=== PATIENT | female | born 1940 | race Two or more races ===

== ENCOUNTER 2023-06-01 17:37 | Inpatient (IN) | payer MEDICARE, OTHER ==
[~2023-06-01] VITALS: Ht 154.9 cm; Wt 45.5 kg
[2023-06-01 18:44] LABS: Basophils # (auto) 0.1 10 ^3/uL (0-0.2); Basophils % (auto) 1.3 % (0.0-2.0); Eosinophils # (auto) 0.1 10 ^3/uL (0-0.8); Eosinophils % (auto) 1.9 % (0.0-7.0); Hematocrit 35.9 % (36.0-46.0); Lymphocytes # (auto) 1.1 10 ^3/uL (0.4-5.4); Lymphocytes % (auto) 19.8 % (10.0-50.0); Mean Corpuscular Hemoglobin 30.2 pg (28.0-32.0); Mean Corpuscular Hgb Conc. 33.4 g/dL (32.0-36.0); Mean Corpuscular Volume 90.5 fL (80.0-100.0); Monocytes # (auto) 0.7 10 ^3/uL (0-1.3); Neutrophils # (auto) 3.6 10 ^3/uL (1.6-8.6); Red Blood Cells 3.97 10^6/uL (4.0-5.20); Red Cell Distribution Width 14.1 % (11.8-14.3); White Blood Cell 5.6 10^3/uL (4.4-10.8)
[2023-06-01 19:02] LABS: Alanine Aminotransferase 14 U/L (7-40); Albumin 4.2 g/dL (3.2-4.8); Alkaline Phosphatase 74 U/L (46-116); Anion Gap 4 (5-15); Aspartate Aminotransferase 20 U/L (13-40); BUN/Creatinine Ratio 22.2 (10.0-20.0); Bilirubin, Total 0.4 mg/dL (0.2-1.0); Blood Urea Nitrogen 20 mg/dL (9-23); Calcium 10.1 mg/dL (8.7-10.4); Carbon Dioxide 28 mmol/L (20-30); Chloride 100 mmol/L (98-107); Glucose 110 mg/dL (74-106); Magnesium 2.1 mg/dL (1.6-2.6); Potassium 4.6 mmol/L (3.5-5.1); Sodium 132 mmol/L (136-145); Total Protein 6.2 g/dL (5.7-8.2)
[2023-06-01 23:06] LABS: Urine Epithelial Cast None Seen /hpf (<5)
[2023-06-01 23:18] LABS: Urine Bacteria NONE SEEN /hpf (None Seen); Urine Blood Negative /uL (Negative); Urine Clarity Clear (Clear); Urine Color Colorless (Yellow); Urine Protein, UAD Negative (Negative); Urine Specific Gravity 1.013 (1.001-1.035); Urine Urobilinogen Normal (Negative); Urine WBC 1 /hpf (0 - 5); Urine pH 6.5 (5.0-8.0)
[2023-06-01] MEDS ORDERED: LORazepam 0.5 MG TAB PO PRN (23:45)
[2023-06-01] MEDS ORDERED: ONDANSETRON HCL 4 MG/2 ML VIAL IV PRN (23:45)
[2023-06-01] MEDS ORDERED: MORPHINE SULFATE INJ 2 MG/ml SYRG IV PRN (23:45)
[2023-06-01] MEDS ORDERED: NITROGLYCERIN 0.4 MG SL TAB SL PRN ×2 (23:45)
[2023-06-01] MEDS ORDERED: MORPHINE SULFATE 4 MG/ML SYR/VIAL IV PRN (23:45)
[2023-06-01 23:54] VITALS: PULSE 70; RESP 14; O2SAT 97
[2023-06-02] MEDS: ASPirin 81 mg TAB PO ONE (00:23)
[2023-06-02] MEDS: ALPRAZolam 0.25 MG TAB PO ONE (00:23)
[2023-06-02] MEDS: ENOXAPARIN SOD 60 MG/0.6 ML SYRINGE SC ONE (00:23)
[2023-06-02] MEDS: MAALOX PLUS or MAALOX 30 ML PO ONE (00:25)
[2023-06-02 05:26] LABS: Basophils # (auto) 0.1 10 ^3/uL (0-0.2); Basophils % (auto) 1.2 % (0.0-2.0); Eosinophils # (auto) 0.2 10 ^3/uL (0-0.8); Eosinophils % (auto) 2.6 % (0.0-7.0); Hematocrit 32.7 % (36.0-46.0); Hemoglobin 11.1 g/dL (12.2-16.2); Lymphocytes # (auto) 1.6 10 ^3/uL (0.4-5.4); Lymphocytes % (auto) 26.2 % (10.0-50.0); Mean Corpuscular Hemoglobin 30.4 pg (28.0-32.0); Mean Corpuscular Hgb Conc. 33.9 g/dL (32.0-36.0); Mean Corpuscular Volume 89.7 fL (80.0-100.0); Monocytes # (auto) 0.9 10 ^3/uL (0-1.3); Monocytes % (auto) 14.7 % (0.0-12.0); Neutrophils # (auto) 3.5 10 ^3/uL (1.6-8.6); Neutrophils % (auto) 55.3 % (37.0-80.0); Red Blood Cells 3.65 10^6/uL (4.0-5.20); Red Cell Distribution Width 14.1 % (11.8-14.3); White Blood Cell 6.3 10^3/uL (4.4-10.8)
[2023-06-02] MEDS: SODIUM CHLOR 0.9% PF (SALINE LOCK) 10ML VIAL/SYR IV SCH (05:51)
[2023-06-02 06:24] LABS: Chloride 102 mmol/L (98-107); Potassium 3.9 mmol/L (3.5-5.1); Sodium 134 mmol/L (136-145)
[2023-06-02 06:25] LABS: Anion Gap 7 (5-15); Calcium 9.8 mg/dL (8.5-10.1); Carbon Dioxide 25 mmol/L (20-30)
[2023-06-02 06:30] LABS: BUN/Creatinine Ratio 16.9 (10.0-20.0); Blood Urea Nitrogen 13 mg/dL (9-23); Glucose 93 mg/dL (74-106); Triglycerides 48 mg/dL (< 150)
[2023-06-02 06:31] LABS: LDL Cholesterol 76 mg/dL (< 100)
[2023-06-02 06:32] LABS: Cholesterol 171 mg/dL (< 200); HDL Cholesterol 82 mg/dL (40-59)
[2023-06-02 07:13] LABS: Magnesium 2.1 mg/dL (1.6-2.6)
[2023-06-02] MEDS: POTASSIUM CHLORIDE 8 MEQ TAB PO ONE (08:43)
[2023-06-02 09:03] VITALS: PULSE 71; RESP 16; O2SAT 97
[2023-06-02 09:03] LABS: INR 1.04 (0.9-1.15); Partial Thromboplastin Time 30.8 SEC (24.5-34.5); Prothrombin Time 10.9 sec (9.3-11.8)
[2023-06-02] MEDS: LOSARTAN POTASSIUM 50 MG TAB PO ONE (09:23)
[2023-06-02] MEDS ORDERED: LISINOPRIL 10 MG TAB PO SCH (10:00)
[2023-06-02] MEDS ORDERED: CARVEDILOL 3.125 MG TAB PO SCH (10:00)
[2023-06-02] MEDS ORDERED: ENOXAPARIN SOD 100 MG/1 ML SYRINGE SC SCH (10:00)
[2023-06-02] MEDS: ASPirin 81 mg TAB PO SCH (10:05)
[2023-06-02] MEDS: CLOPIDOGREL BISULFATE 75 MG TAB PO SCH (10:05)
[2023-06-02] MEDS: ADENOSINE 42 MG in GIVE UN-DILUTED 0 ML IV ONE (11:20)
[2023-06-02 13:48] VITALS: BP 149/48; PULSE 68; RESP 14; TEMP 97.8
[2023-06-02] MEDS ORDERED: ALPR0.255 PO (14:39)
[2023-06-02] MEDS ORDERED: LOSA100T33 PO (14:40)
[2023-06-02 17:00] VITALS: BP 141/91; PULSE 71; RESP 16; TEMP 97.4; O2SAT 97
[2023-06-02 20:00] VITALS: BP 158/57; PULSE 62; PULSE 81; RESP 18; TEMP 97.6; O2SAT 96
[2023-06-02] MEDS: ATORVASTATIN 20 MG TAB PO SCH (21:12)
[2023-06-02 22:00] VITALS: BP 158/57; PULSE 62; RESP 18; TEMP 97.6; O2SAT 96
[2023-06-02] MEDS: hydrALAZINE HCL 20 MG/ML VL IV PRN (22:16)
[2023-06-03 05:00] VITALS: BP 127/52; PULSE 72; RESP 18; TEMP 97.3; O2SAT 98
[2023-06-03 06:26] LABS: Basophils # (auto) 0.1 10 ^3/uL (0-0.2); Basophils % (auto) 1.4 % (0.0-2.0); Eosinophils # (auto) 0.1 10 ^3/uL (0-0.8); Eosinophils % (auto) 2.7 % (0.0-7.0); Hematocrit 33.8 % (36.0-46.0); Hemoglobin 11.1 g/dL (12.2-16.2); Lymphocytes # (auto) 0.9 10 ^3/uL (0.4-5.4); Lymphocytes % (auto) 15.5 % (10.0-50.0); Mean Corpuscular Hemoglobin 30.1 pg (28.0-32.0); Mean Corpuscular Hgb Conc. 32.9 g/dL (32.0-36.0); Mean Corpuscular Volume 91.4 fL (80.0-100.0); Monocytes # (auto) 0.7 10 ^3/uL (0-1.3); Monocytes % (auto) 13.2 % (0.0-12.0); Neutrophils # (auto) 3.7 10 ^3/uL (1.6-8.6); Neutrophils % (auto) 67.2 % (37.0-80.0); Red Cell Distribution Width 14.2 % (11.8-14.3); White Blood Cell 5.5 10^3/uL (4.4-10.8)
[2023-06-03 06:42] LABS: Alanine Aminotransferase 12 U/L (7-40); Alkaline Phosphatase 62 U/L (46-116); Anion Gap 6 (5-15); BUN/Creatinine Ratio 16.9 (10.0-20.0); Blood Urea Nitrogen 12 mg/dL (9-23); Calcium 9.1 mg/dL (8.7-10.4); Carbon Dioxide 24 mmol/L (20-30); Chloride 102 mmol/L (98-107); Glucose 93 mg/dL (74-106); Sodium 132 mmol/L (136-145)
[2023-06-03 06:43] LABS: Albumin 3.6 g/dL (3.2-4.8); Aspartate Aminotransferase 17 U/L (13-40); Bilirubin, Total 0.7 mg/dL (0.2-1.0); Total Protein 5.6 g/dL (5.7-8.2)
[2023-06-03 08:00] VITALS: PULSE 60
[2023-06-03 09:00] VITALS: BP 141/55; PULSE 77; RESP 16; TEMP 97.5; O2SAT 97
[2023-06-03] MEDS: LOSARTAN POTASSIUM 50 MG TAB PO SCH (09:29)
[2023-06-03] MEDS: ENOXAPARIN SOD 40 MG/0.4 ML SYRINGE SC SCH (09:31)
[2023-06-03] MEDS: ACETAMINOPHEN 325 MG TAB PO PRN (16:35)
== END 2023-06-03 17:13 | disposition home or self-care (01) | DRG 281 ==
LOC: EDBD 17:37 → ER 17:37 → TELE-CENTR 23:43 → TELE 23:43 → TELE-CENTR 06-02 13:49
PROVIDERS: ADMIT Hospitalist; ATTEND Family Medicine
DX: I16.0 Hypertensive urgency (principal); I21.A1 Myocardial infarction type 2; E87.1 Hypo-osmolality and hyponatremia; R07.89 Other chest pain; F41.9 Anxiety disorder, unspecified; D64.9 Anemia, unspecified; E78.5 Hyperlipidemia, unspecified; Z90.710 Acquired absence of both cervix and uterus; Z88.2 Allergy status to sulfonamides
CPT/HCPCS: 36415; 71045; 78452; 80048; 80053; 80061; 81001; 83735; 83880; 84443; 84484; 85025; 85610; 85730; 93005; 93017; 93306; G0378; J0153

== ENCOUNTER 2024-11-07 09:12 | Inpatient (IN) | payer MEDICARE, BC ==
[~2024-11-07] VITALS: Ht 154.9 cm; Wt 48.6 kg
[~2024-11-07 09:12] MED LIST: ALPR0.255 PO; LOSA100T33 PO
--- NOTE | 2024-11-07 10:01 | ED.PDOC ---
HPI (NEURO) HPI Comments This is a 83 year old female presenting to the ED with chief complaint of right sided weakness. Patient reports that she had woken up this morning with right arm weakness with associated slower than normal speech. Patient relays that her symptoms have since resolved upon arrival to the ED. Patient denies any N/V/D, headache, dysuria, numbness, tingling, chest pain, or SOB. Patient states she took her BP medication last night. Time Seen by MD: 09:42 Primary Care Provider: HEBER Cavazos Notes: Nurses Notes, Medications, Allergies Information Source: Patient Mode of Arrival: Ambulatory Severity: Moderate Headache Severity: None Timing: Hours Duration: Since onset Prehospital treatment: None Weakness Location: (R) Arm Onset: At rest Circumstances: Spontaneous Symptoms: Weakness, Difficulty talking Before: Normal During: Awake History of: None Modifying factors: Nothing Past Medical History PAST MEDICAL HISTORY: Anxiety, HTN Surgical History: , Hysterectomy SPORTS COORDINATOR History: No Pertinent SPORTS COORDINATOR History Family History Family History: Unknown Social History Smoker: Non-Smoker Alcohol: Occasionally Drugs: Denies Drug Use Lives In: Home Constitutional: denies: chills, diaphoresis, fatigue, fever, malaise, sweats, weakness, others EENTM: denies: blurred vision, double vision, ear bleeding, ear discharge, ear drainage, ear pain, ear ringing, eye pain, eye redness, hearing loss, mouth pain, mouth swelling, nasal discharge, nose bleeding, nose congestion, nose pain, photophobia, tearing, throat pain, throat swelling, voice changes, others Respiratory: denies: cough, hemoptysis, orthopnea, SOB at rest, shortness of breath, SOB with excertion, stridor, wheezing, others Cardiovascular: denies: chest pain, dizzy spells, diaphoresis, Dyspnea on exertion, edema, irregular heart beat, left arm pain, lightheadedness, palpitations, PND, syncope, others Gastrointestinal: denies: abdomen distended, abdominal pain, blood streaked bowels, constipated, diarrhea, dysphagia, difficulty swallowing, hematemesis, melena, nausea, poor appetite, poor fluid intake, rectal bleeding, rectal pain, vomiting, others Genitourinary: denies: abnormal vagina bleeding, burning, dyspareunia, dysuria, flank pain, frequency, hematuria, incontinence, pain, , vagina discharge, urgency, others Neurological: reports: right sided weakness, speech problems; denies: dizziness, fainting, headache, left sided numbness, left sided weakness, numbness, paresthesia, pre-existing deficit, right sided numbness, seizure, tingling, tremors, weakness, others Musculoskeletal: denies: back pain, gout, joint pain, joint swelling, muscle pain, muscle stiffness, neck pain, others Integumetry: denies: bruises, change in color, change in hair/nails, dryness, laceration, lesions, lumps, rash, wounds, others Allergic/Immunocompromised: denies: Difficulty Healing, Frequent Infections, Hives, Itching, others Hematologic/Lymphatic: denies: anemia, blood clots, easy bleeding, easy bruising, swollen glands, others Endocrine: denies: excessive hunger, excessive sweating, excessive thirst, excessive urination, flushing, intolerance to cold, intolerance to heat, unexplained weight gain, unexplained weight loss, others Psychiatric: denies: anxiety, bipolar disorder, depression, hopeless, panic disorder, schizophrenia, sleepless, suicidal, others All Other Systems: Reviewed and Negative Physical Exam General Appearance: No Apparent Distress, Normal HEENT: Normal ENT Inspection, Pharynx Normal, TMs Normal Neck: Full Range of Motion, Non-Tender, Normal, Normal Inspection Respiratory: Chest Non-Tender, Lungs Clear, No Accessory Muscle Use, No Respiratory Distress, Normal Breath Sounds Cardiovascular: No Edema, No JVD, No Murmur, No Gallop, Normal Peripheral Pulses, Regular Rate/Rhythm Breast Exam: Deferred Gastrointestinal: No Organomegaly, Non Tender, No Pulsatile Mass, Normal Bowel Sounds, Soft Genitalia: Deferred Pelvic: Deferred Rectal: Deferred Extremities: No calf tenderness, Normal capillary refill, Normal inspection, Normal range of motion, Non-tender, No pedal edema Musculoskeletal : Location: Right Extremity Location: Arm Apperance: Normal, Tenderness Neurologic: Alert, 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 Was a procedure done?: No Differential Diagnosis (SZ) Seizure: N/A CVA: CVA, Electrolyte Imbalance General Weakness: N/A Headache: N/A X-Ray, Labs, Meds, VS Vital Signs Date Time Temp Pulse Resp B/P (MAP) Pulse Ox O2 Delivery O2 Flow Rate FiO2 11/07/24 09:40 98.1 80 18 187/111 (136) 97 98.1 11/07/24 09:32 75 Lab Test 11/07/24 11:00 11/07/24 10:03 11/07/24 09:34 11/07/24 09:30 Range/Units Troponin I High Sensitivity 10 6 </=34 ng/L White Blood Count 4.7 4.4-10.8 10^3/uL Red Blood Count 4.31 4.0-5.20 10^6/uL Hemoglobin 13.3 12.2-16.2 g/dL Hematocrit 38.5 36.0-46.0 % Mean Corpuscular Volume 89.3 80.0-100.0 fL Mean Corpuscular Hemoglobin 30.8 28.0-32.0 pg Mean Corpuscular Hemoglobin Concent 34.5 32.0-36.0 g/dL Red Cell Distribution Width 14.2 11.8-14.3 % Platelet Count 269 140-450 10^3/uL Mean Platelet Volume 8.0 6.9-10.8 fL Neutrophils (%) (Auto) 67.0 37.0-80.0 % Lymphocytes (%) (Auto) 20.0 10.0-50.0 % Monocytes (%) (Auto) 8.8 0.0-12.0 % Eosinophils (%) (Auto) 2.8 0.0-7.0 % Basophils (%) (Auto) 1.4 0.0-2.0 % Neutrophils # (Auto) 3.1 1.6-8.6 10 ^3/uL Lymphocytes # (Auto) 0.9 0.4-5.4 10 ^3/uL Monocytes # (Auto) 0.4 0-1.3 10 ^3/uL Eosinophils # (Auto) 0.1 0-0.8 10 ^3/uL Basophils # (Auto) 0.1 0-0.2 10 ^3/uL Nucleated Red Blood Cells 0.0 % Sodium Level 134 L 136-145 mmol/L Potassium Level 3.7 3.5-5.1 mmol/L Chloride Level 100 98-107 mmol/L Carbon Dioxide Level 25 20-31 mmol/L Anion Gap 9 5-15 Blood Urea Nitrogen 16 9-23 mg/dL Creatinine 0.88 0.550-1.02 mg/dL Glomerular Filtration Rate Calc 65 >90 mL/min BUN/Creatinine Ratio 18.2 10.0-20.0 Serum Glucose 96 74-106 mg/dL Calcium Level 11.0 H 8.7-10.4 mg/dL POC Glucose 96 70-106 mg/dl Urine Color Light-yellow Yellow Urine Clarity Clear Clear Urine pH 6.5 5.0-9.0 Urine Specific [place] 1.009 1.001-1.035 Urine Protein Negative Negative Urine Ketones Negative Negative Urine Blood Negative Negative /uL Urine Nitrite Negative Negative Urine Bilirubin Negative Negative Urine Urobilinogen Normal Negative mg/dL Urine Leukocyte Esterase Negative Negative /uL Urine RBC <1 0 - 4 /hpf Urine Microscopic WBC < 1 0-5 /HPF Urine Squamous Epithelial Cells Few <5 /hpf Urine Bacteria None seen None Seen /hpf Urine Mucus Few None Seen Urine Glucose Normal Normal mg/dL CT Head: FINDINGS: There is mild global brain atrophy. There is mild decreased attenuation in the periventricular white matter. No intracranial hemorrhage, mass, midline shift, hydrocephalus, or evidence of acute large vessel infarct. There are atherosclerotic calcifications of the cavernous ICAs. There are Postoperative changes of Bilateral cataract extraction surgery. The partially-visualized paranasal sinuses are clear. The bilateral mastoid air cells and middle ear spaces are clear. No cranial fracture or scalp edema. IMPRESSION: Mild global brain atrophy and chronic ischemic changes without evidence of acute intracranial process. Chest XR: FINDINGS: . The heart and mediastinal contours are grossly unremarkable. There is no evidence of pleural disease. The lungs are clear. The bony structures of the chest are intact without fracture. IMPRESSION: 1. No evidence of acute disease. Images Reviewed?: Images reviewed and evaluated by me Time of 1ST Reevaluation: 10:31 Reevaluation 1ST: Unchanged Patient Education/Counseling: Diagnosis, Treatment Family Education/Counseling: No Family Present Additional Information Previous visits reviewed: 06/01/23 for chest pain The following tests were ordered, and results were reviewed by me: CT Head, CBC, BMP, Troponin Additional Information was gathered from interviewing the following independent historians: None I reviewed and agreed with the following test results read by other providers: CT Head I discussed treatment and results with medical personnel and: patient Comprehensive systems review obtained and negative except for what is stated in the HPI. Departure 1 Departure Time of Disposition: 11:58 (Patient with transient episodes of right-sided weakness. This is concerning for a TIA. We will admit patient for further workup and expert consultation.) Impression: Primary Impression: Right sided weakness Disposition: ADMITTED INPATIENT Admit to: Med Surg Condition: Serious Critical Care Note Critical Care Time?: Yes Critical care comment: Concern for CVA Authorized and Performed by: Jayne Smith MD Total critical care time: Approximately 39 minutes Due to a high probability of clinically significant, life threatening deterioration, the patient required my highest level of preparedness to intervene emergently and I personally spent this critical care time directly and personally managing the patient. This critical care time included obtaining a history; examining the patient; pulse oximetry; ordering and review of studies; arranging urgent treatment with development of a management plan; evaluation of patient's response to treatment; frequent reassessment; and, discussions with other providers. This critical care time was performed to assess and manage the high probability of imminent, life-threatening deterioration that could result in multi-organ failure. It was exclusive of separately billable procedures and treating other patients and teaching time. Please see my other sections and the rest of the note for further information on patient assessment and treatment. Stability Stability form required: No Heart Score Heart Score: Heart Score Response (Comments) Value History N/A 0 EKG N/A 0 Age N/A 0 Risk Factors N/A 0 Troponin N/A 0 Total 0 I personally scribed for JAYNE SMITH MD ([email or web address]) on 11/07/24 at 10:01. Electronically submitted by Amilcar Montalvo ([email or web address]). I personally scribed for JAYNE SMITH MD ([email or web address]) on 11/07/24 at 10:43. Electronically submitted by Amilcar Montalvo ([email or web address]). JAYNE SMITH MD Nov 07, 2024 10:01
--- NOTE | 2024-11-07 10:03 | DVH ---
EXAM: CT HEAD WITHOUT CONTRAST HISTORY: right sided weakness COMPARISON: None TECHNIQUE: Noncontrast axial CT images of the head were performed. Sagittal and coronal reformatted i mages were obtained. This CT exam was performed using 1 or more of the following dose reduction techn iques: Automated exposure control, adjustment of the mA and/or kv according to patient size, or the u se of iterative reconstruction techniques. Radiation Dose: CTDI volume is 52.09 mGy. Dose-length product is 922.42 mGy*cm FINDINGS: There is mild global brain atrophy. There is mild decreased attenuation in the periventricular white matter. No intracranial hemorrhage, mass, midline shift, hydrocephalus, or evidence of acute large v essel infarct. There are atherosclerotic calcifications of the cavernous ICAs. There are Postoperativ e changes of Bilateral cataract extraction surgery. The partially-visualized paranasal sinuses are cl ear. The bilateral mastoid air cells and middle ear spaces are clear. No cranial fracture or scalp ed david. IMPRESSION: Mild global brain atrophy and chronic ischemic changes without evidence of acute intracranial process .
[2024-11-07 10:18] LABS: Urine Bacteria None Seen /hpf (None Seen)
[2024-11-07 10:25] LABS: Urine Blood Negative /uL (Negative); Urine Clarity Clear (Clear); Urine Color Light-Yellow (Yellow); Urine Mucus FEW (None Seen); Urine Protein, UAD Negative (Negative); Urine Specific Gravity 1.009 (1.001-1.035); Urine Squamous Epithelial Cell FEW /hpf (<5); Urine Urobilinogen Normal (Negative); Urine WBC < 1 /HPF (0-5); Urine pH 6.5 (5.0-9.0)
--- NOTE | 2024-11-07 10:25 | DVH ---
INDICATION: right sided weakness TECHNIQUE: Frontal view of the chest. COMPARISON: XY CHEST PORTABLE on DOS: 06/01/23 FINDINGS: . The heart and mediastinal contours are grossly unremarkable. There is no evidence of pleural disea se. The lungs are clear. The bony structures of the chest are intact without fracture. IMPRESSION: 1. No evidence of acute disease.
[2024-11-07 10:38] LABS: Basophils # (auto) 0.1 10 ^3/uL (0-0.2); Basophils % (auto) 1.4 % (0.0-2.0); Eosinophils # (auto) 0.1 10 ^3/uL (0-0.8); Eosinophils % (auto) 2.8 % (0.0-7.0); Hematocrit 38.5 % (36.0-46.0); Hemoglobin 13.3 g/dL (12.2-16.2); Lymphocytes # (auto) 0.9 10 ^3/uL (0.4-5.4); Mean Corpuscular Hemoglobin 30.8 pg (28.0-32.0); Mean Corpuscular Hgb Conc. 34.5 g/dL (32.0-36.0); Mean Corpuscular Volume 89.3 fL (80.0-100.0); Monocytes # (auto) 0.4 10 ^3/uL (0-1.3); Monocytes % (auto) 8.8 % (0.0-12.0); Neutrophils # (auto) 3.1 10 ^3/uL (1.6-8.6); Platelet Count (auto) 269 10^3/uL (140-450); Red Blood Cells 4.31 10^6/uL (4.0-5.20); Red Cell Distribution Width 14.2 % (11.8-14.3); White Blood Cell 4.7 10^3/uL (4.4-10.8)
[2024-11-07 10:40] LABS: Chloride 100 mmol/L (98-107); Potassium 3.7 mmol/L (3.5-5.1)
[2024-11-07 10:41] LABS: Anion Gap 9 (5-15); Carbon Dioxide 25 mmol/L (20-31)
[2024-11-07 10:44] LABS: Sodium 134 mmol/L (136-145)
[2024-11-07 10:46] LABS: Glucose 96 mg/dL (74-106)
[2024-11-07 10:47] LABS: BUN/Creatinine Ratio 18.2 (10.0-20.0); Blood Urea Nitrogen 16 mg/dL (9-23)
[2024-11-07] MEDS: SODIUM CHLORIDE 0.9% 1,000 ML IV SCH (14:45)
[2024-11-07] MEDS ORDERED: ALPRAZolam 0.25 MG TAB PO PRN (14:45)
[2024-11-07] MEDS ORDERED: DOCUSATE SOD 100 MG CAP PO PRN (14:45)
[2024-11-07] MEDS ORDERED: HYDROcodone-ACET 5/325MG TAB PO PRN (14:45)
[2024-11-07] MEDS ORDERED: ONDANSETRON HCL 4 MG/2 ML VIAL IV PRN (14:45)
[2024-11-07] MEDS ORDERED: ACETAMINOPHEN 325 MG TAB PO PRN (14:45)
[2024-11-07] MEDS: amLODIPine BESYLATE 5 MG TAB PO ONE (15:13)
[2024-11-07] MEDS ORDERED: NITROGLYCERIN 0.4 MG SL TAB SL PRN (15:15)
--- NOTE | 2024-11-07 15:16 | DVHHP2 ---
History of Present Illness Reason for Visit: Right sided weakness History of Present Illness The patient is a 83-year-old female with past medical history of anxiety and hypertension who presented to [facility] ED with complaint of right- sided weakness. Patient reports she has been experiencing right-sided witnessed with associated speech problem, left redness, getting worse that prompted this visit. The patient was seen and evaluated in the ED, laboratory data shows WBC 4.7, platelets 269, sodium 134, potassium 3.7, BUN 16, creatinine 0.8, glucose 96, calcium 11.0, troponin 21, blood pressure 195/65 trending down to 133/45, heart rate 65, temperature 97.4 F, O2 saturation 96% on room air. Head CT revealing mild global brain atrophy and chronic ischemic changes without evidence of acute intracranial process. Please see medication orders section in the computer. On my assessment, patient denied chest pain, no headache, no dizziness, no diaphoresis, no shortness of breaths, no nausea, no vomiting, no fever, no chills. Patient was admitted for further evaluation and medical management. Past Medical History Anxiety, HTN Past Surgical History , Hysterectomy Family History Reviewed, noncontributory to the management of this case. Past Social History The patient lives at home, denies smoking, alcohol or illicit drugs abuse. Review of Systems Constitutional: No: Fever, Chills, Sweats, Weakness, Malaise, Other Eyes: No: Pain, Vision change, Conjunctivae inflammation, Eyelid inflammation, Other, Redness ENT: No: Ear pain, Ear discharge, Nose pain, Nose discharge, Nose congestion, Mouth pain, Mouth swelling, Throat pain, Throat swelling, Other Respiratory: No: Cough, Dry, Shortness of breath, SOB with excertion, Wheezing, Hemoptysis, Pleuritic Pain, Sputum, Wheezing, Other Cardiovascular: No: Chest Pain, Palpitations, Orthopnea, Paroxysmal Noc. Dyspnea, Edema, Lt Headedness, Other Gastrointestinal: No: Nausea, Vomiting, Abdominal Pain, Diarrhea, Constipation, Melena, Hematochezia, Other Genitourinary: No Dysuria, No Frequency, No Incontinence, No Hematuria, No Retention, No Other Musculoskeletal: No: other, neck pain, shoulder pain, arm pain, back pain, hand pain, leg pain, foot pain Skin: No: Rash, Lesions, Jaundice, Bruising, Other Neurological: Weakness (Right-sided), Change in speech; No: Numbness, Incoordination, Confusion, Seizures, Other Allergies: Uncoded Allergies: SULFA (Allergy, Unknown, 12/29/13) Medications Current Medications Medications Dose Ordered Sig/Laury Route Start Time Stop Time Status Last Admin Dose Admin Alprazolam 0.25 mg Q8HP PRN PO 11/07/24 14:45 Hydralazine HCl 10 mg Q6HP PRN IV 11/07/24 14:45 Amlodipine Besylate 5 mg DAILY PO 11/08/24 10:00 Sodium Chloride 1,000 ml @ 60 mls/hr [id number] IV 11/07/24 14:45 Acetaminophen/ Hydrocodone Bitart 1 tab Q4HP PRN PO 11/07/24 14:45 Ondansetron HCl 4 mg Q4HP PRN IV 11/07/24 14:45 Docusate Sodium 100 mg BIDPRN PRN PO 11/07/24 14:45 Acetaminophen 650 mg Q6HP PRN PO 11/07/24 14:45 Exam Vital Signs Vital Signs Date Time Temp Pulse Resp B/P (MAP) Pulse Ox O2 Delivery O2 Flow Rate FiO2 11/07/24 15:13 184/75 11/07/24 14:06 65 20 96 11/07/24 13:29 97.3 97.3 General Appearance: Alert, Oriented X3, Cooperative, No acute distress HEENT: Atraumatic, PERRLA, EOMI, Mucous membr. moist/pink Respiratory: Clear to auscultation, Normal air movement Cardiovascular: Regular rate, Normal S1, Normal S2, No murmurs Abdominal: Normal bowel sounds, Soft, No tenderness, No hepatospenomegaly, No masses Extremities: No clubbing, No cyanosis, No edema, Normal pulses, No tenderness/swelling Skin: No rashes, No breakdown, No significant lesion Neuro: Normal speech, Normal tone, Sensation intact, Cranial nerves 3-12 NL, Reflexes 2+, Other (Right-sided weakness) Psych/Mental Status: Mental status NL, Mood NL Labs/Xrays Labs Test 11/07/24 12:47 11/07/24 10:03 11/07/24 09:34 11/07/24 09:30 Range/Units Troponin I High Sensitivity 21 </=34 ng/L White Blood Count 4.7 4.4-10.8 10^3/uL Red Blood Count 4.31 4.0-5.20 10^6/uL Hemoglobin 13.3 12.2-16.2 g/dL Hematocrit 38.5 36.0-46.0 % Mean Corpuscular Volume 89.3 80.0-100.0 fL Mean Corpuscular Hemoglobin 30.8 28.0-32.0 pg Mean Corpuscular Hemoglobin Concent 34.5 32.0-36.0 g/dL Red Cell Distribution Width 14.2 11.8-14.3 % Platelet Count 269 140-450 10^3/uL Mean Platelet Volume 8.0 6.9-10.8 fL Neutrophils (%) (Auto) 67.0 37.0-80.0 % Lymphocytes (%) (Auto) 20.0 10.0-50.0 % Monocytes (%) (Auto) 8.8 0.0-12.0 % Eosinophils (%) (Auto) 2.8 0.0-7.0 % Basophils (%) (Auto) 1.4 0.0-2.0 % Neutrophils # (Auto) 3.1 1.6-8.6 10 ^3/uL Lymphocytes # (Auto) 0.9 0.4-5.4 10 ^3/uL Monocytes # (Auto) 0.4 0-1.3 10 ^3/uL Eosinophils # (Auto) 0.1 0-0.8 10 ^3/uL Basophils # (Auto) 0.1 0-0.2 10 ^3/uL Nucleated Red Blood Cells 0.0 % Sodium Level 134 L 136-145 mmol/L Potassium Level 3.7 3.5-5.1 mmol/L Chloride Level 100 98-107 mmol/L Carbon Dioxide Level 25 20-31 mmol/L Anion Gap 9 5-15 Blood Urea Nitrogen 16 9-23 mg/dL Creatinine 0.88 0.550-1.02 mg/dL Glomerular Filtration Rate Calc 65 >90 mL/min BUN/Creatinine Ratio 18.2 10.0-20.0 Serum Glucose 96 74-106 mg/dL Calcium Level 11.0 H 8.7-10.4 mg/dL POC Glucose 96 70-106 mg/dl Urine Color Light-yellow Yellow Urine Clarity Clear Clear Urine pH 6.5 5.0-9.0 Urine Specific [place] 1.009 1.001-1.035 Urine Protein Negative Negative Urine Ketones Negative Negative Urine Blood Negative Negative /uL Urine Nitrite Negative Negative Urine Bilirubin Negative Negative Urine Urobilinogen Normal Negative mg/dL Urine Leukocyte Esterase Negative Negative /uL Urine RBC <1 0 - 4 /hpf Urine Microscopic WBC < 1 0-5 /HPF Urine Squamous Epithelial Cells Few <5 /hpf Urine Bacteria None seen None Seen /hpf Urine Mucus Few None Seen Urine Glucose Normal Normal mg/dL PATIENT: MY JOLLEY ACCT: [id number] UNIT: [id number] : 1940 LOC: ER ROOM / BED: / AGE / SEX: 83 / F ADM STATUS: REG ER SERVICE 9 ORDERING PHYSICIAN: JAYNE MCCARTY MD PROCEDURE(s): HWOCT - HEAD WITHOUT CONTRAST REASON: right sided weakness ORDER NUMBER(s): [id number], ACCESSION NUMBER(s): [id number] EXAM: CT HEAD WITHOUT CONTRAST HISTORY: right sided weakness COMPARISON: None TECHNIQUE: Noncontrast axial CT images of the head were performed. Sagittal and coronal reformatted images were obtained. This CT exam was performed using 1 or more of the following dose reduction techniques: Automated exposure control, adjustment of the mA and/or kv according to patient size, or the use of iterative reconstruction techniques. Radiation Dose: CTDI volume is 52.09 mGy. Dose-length product is 922.42 mGy*cm FINDINGS: There is mild global brain atrophy. There is mild decreased attenuation in the periventricular white matter. No intracranial hemorrhage, mass, midline shift, hydrocephalus, or evidence of acute large vessel infarct. There are atherosclerotic calcifications of the cavernous ICAs. There are Postoperative changes of Bilateral cataract extraction surgery. The partially-visualized paranasal sinuses are clear. The bilateral mastoid air cells and middle ear spaces are clear. No cranial fracture or scalp edema. IMPRESSION: Mild global brain atrophy and chronic ischemic changes without evidence of acute intracranial process. ORDERING PHYSICIAN: JAYNE MCCARTY MD PROCEDURE(s): CXRP - CHEST PORTABLE REASON: right sided weakness ORDER NUMBER(s): [id number], ACCESSION NUMBER(s): [id number] INDICATION: right sided weakness TECHNIQUE: Frontal view of the chest. COMPARISON: XY CHEST PORTABLE on DOS: 06/01/23 FINDINGS: The heart and mediastinal contours are grossly unremarkable. There is no evidence of pleural disease. The lungs are clear. The bony structures of the chest are intact without fracture. IMPRESSION: 1. No evidence of acute disease. Assessment/Plan Assessment/Plan Right sided weakness Hypertensive urgency Plan 1. Admit to telemetry unit 2. Breathing treatment 3. Pain control management 4. Management of fluids and electrolytes 5. Consultation for Neurology 6. Diagnostic tests head CT 7. DVT prophylaxis-on SCDs 8. Repeat labs CBC, CMP in a.m. 9. Continue with current medical management 10. Treatment plan discussed with patient and RN. Patient verbalized understanding. Plan discussed with: Patient, Other (RN) My Orders Orders - CAROLINE MENESES DNP Procedure Category Date Status Time Alprazolam Tablet PHA 11/07/24 In Process (Xanax Tablet) 14:45 Hydralazine Injection PHA 11/07/24 In Process (Apresoline Inject 14:45 Amlodipine Tablet PHA 11/08/24 In Process (Norvasc Tablet) 10:00 Allergies CURLY 11/07/24 In Process 14:36 Code Status CODE 11/07/24 Transmitted 14:36 Sodium Chloride 0.9% PHA 11/07/24 In Process 14:45 Oxygen Per Hour RT 11/07/24 Transmitted 14:36 Hydrocodone-Acet PHA 11/07/24 In Process 5/325mg Tab (Clare 14:45 Ondansetron Hcl PHA 11/07/24 In Process (Zofran) 14:45 Docusate Sodium PHA 11/07/24 In Process Capsule (Colace 14:45 Fall Risk Precautions CURLY 11/07/[address] 14:36 Complete Blood Count LAB 11/08/24 Verified 04:00 Comprehensive LAB 11/08/24 Verified Metabolic Panel 04:00 Cardiac DIET 11/07/24 Transmitted Diet-2gna,Lofat,Lochol Dinner Condition: Serious CURLY 11/07/24 In Process 14:36 Acetaminophen Tablet PHA 11/07/24 In Process (Tylenol Tablet) 14:45 Maintain Bed Rest CURLY 11/07/24 In Process 14:36 Sequential CURLY 11/07/24 In Process Compression Device Problem List: (1) Right sided weakness (2) Hypertensive urgency Date of Service: Nov 07, 2024 Billing Provider: CAROLINE MENESES DNP Common Visit Codes: 01958-[id number] INP/OBS CARE (HIGH) CAROLINE MENESES DNP Nov 07, 2024 15:16
[2024-11-07] MEDS ORDERED: MORPHINE SULFATE 4 MG/ML SYR/VIAL IV PRN (15:45)
[2024-11-07 16:55] VITALS: PULSE 61; RESP 12; O2SAT 98
[2024-11-07 19:22] VITALS: PULSE 77; RESP 10; O2SAT 98
[2024-11-07 21:23] VITALS: BP_SYST 128; BP_SYST 132; BP_DIAS 56; BP_DIAS 58; PULSE 62; PULSE 63; RESP 16; RESP 17; TEMP 97.6; TEMP 98; O2SAT 98
[2024-11-07] MEDS ORDERED: ASPI-628 PO (22:39)
[2024-11-08] VITALS (8 sets, daily range): BP systolic 109–157; BP diastolic 48–65; PULSE 57–93; RESP 16–18; TEMP 97.2–98.3; O2SAT 95–99
[2024-11-08 07:18] LABS: Basophils # (auto) 0.1 10 ^3/uL (0-0.2); Basophils % (auto) 1.7 % (0.0-2.0); Eosinophils # (auto) 0.1 10 ^3/uL (0-0.8); Eosinophils % (auto) 2.9 % (0.0-7.0); Hemoglobin 11.6 g/dL (12.2-16.2); Lymphocytes % (auto) 19.4 % (10.0-50.0); Mean Corpuscular Hemoglobin 31.2 pg (28.0-32.0); Mean Corpuscular Hgb Conc. 35.2 g/dL (32.0-36.0); Mean Corpuscular Volume 88.7 fL (80.0-100.0); Monocytes # (auto) 0.6 10 ^3/uL (0-1.3); Neutrophils # (auto) 3.2 10 ^3/uL (1.6-8.6); Nucleated Red Blood Cells % 0.1 %; Platelet Count (auto) 233 10^3/uL (140-450); Red Blood Cells 3.72 10^6/uL (4.0-5.20); Red Cell Distribution Width 14.2 % (11.8-14.3); White Blood Cell 4.9 10^3/uL (4.4-10.8)
[2024-11-08 07:34] LABS: Alanine Aminotransferase 11 U/L (7-40); Albumin 3.8 g/dL (3.2-4.8); Anion Gap 7 (5-15); Aspartate Aminotransferase 20 U/L (13-40); BUN/Creatinine Ratio 17.5 (10.0-20.0); Bilirubin, Total 0.7 mg/dL (0.2-1.0); Blood Urea Nitrogen 11 mg/dL (9-23); Calcium 9.1 mg/dL (8.7-10.4); Carbon Dioxide 24 mmol/L (20-31); Chloride 104 mmol/L (98-107); Glucose 83 mg/dL (74-106); Potassium 3.8 mmol/L (3.5-5.1); Total Protein 5.8 g/dL (5.7-8.2)
[2024-11-08 07:36] LABS: Sodium 135 mmol/L (136-145)
[2024-11-08 07:43] LABS: Alkaline Phosphatase 57 U/L (46-116)
[2024-11-08] MEDS: amLODIPine BESYLATE 5 MG TAB PO SCH (09:27)
--- NOTE | 2024-11-08 12:38 | DVHPN2 ---
Reviewed: Care Plan, H&P, Labs, Medications, Previous Orders, Radiology Changes from previous H/P or p: No Changes Eyes: No Pain, No Vision change, No Conjunctivae inflammation, No Eyelid inflammation, No Other, No Redness ENT: No Ear pain, No Ear discharge, No Nose pain, No Nose discharge, No Nose congestion, No Mouth pain, No Mouth swelling, No Throat pain, No Throat swelling, No Other Cardiovascular: No Chest Pain, No Palpitations, No Orthopnea, No Paroxysmal Noc. Dyspnea, No Edema, No Lt Headedness, No Other Respiratory: No Cough, No Dry, No Shortness of breath, No SOB with excertion, No Wheezing, No Hemoptysis, No Pleuritic Pain, No Sputum, No Other Gastrointestinal: No Nausea, No Vomiting, No Abdominal Pain, No Diarrhea, No Constipation, No Melena, No Hematochezia, No Other Genitourinary: No Dysuria, No Frequency, No Incontinence, No Hematuria, No Retention, No Other Musculoskeletal: No other, No neck pain, No shoulder pain, No arm pain, No back pain, No hand pain, No leg pain, No foot pain Skin: No Rash, No Lesions, No Jaundice, No Bruising, No Other Objective Vitals Vital Signs Date Time Temp Pulse Resp B/P (MAP) Pulse Ox O2 Delivery O2 Flow Rate FiO2 11/08/24 09:27 123/59 11/08/24 09:00 97.7 61 16 97 97.7 11/08/24 08:00 Room Air* 0 21 Intake/Output Intake and Output 11/08/24 07:00 Intake Total 240 ml Balance 240 ml Intake Oral 240 ml # Voids 2 Medications Current Medications Medications Dose Ordered Sig/Laury Route Start Time Stop Time Status Last Admin Dose Admin Alprazolam 0.25 mg Q8HP PRN PO 11/07/24 14:45 Hydralazine HCl 10 mg Q6HP PRN IV 11/07/24 14:45 Amlodipine Besylate 5 mg DAILY PO 11/08/24 10:00 11/08/24 09:27 5 MG Sodium Chloride 1,000 ml @ 60 mls/hr [id number] IV 11/07/24 14:45 11/07/24 22:34 60 MLS/HR Acetaminophen/ Hydrocodone Bitart 1 tab Q4HP PRN PO 11/07/24 14:45 Ondansetron HCl 4 mg Q4HP PRN IV 11/07/24 14:45 Docusate Sodium 100 mg BIDPRN PRN PO 11/07/24 14:45 Acetaminophen 650 mg Q6HP PRN PO 11/07/24 14:45 Nitroglycerin 0.4 mg Q5MINP PRN SL 11/07/24 15:15 Morphine Sulfate 2 mg Q30M PRN IV 11/07/24 15:45 Laboratory Results Laboratory Tests 11/08/24 05:53 Chemistry Test 11/08/24 05:53 Albumin 3.8 g/dL (3.2-4.8) Calcium Level 9.1 mg/dL (8.7-10.4) Total Protein 5.8 g/dL (5.7-8.2) LFT Test 11/08/24 05:53 Alanine Aminotransferase (ALT) 11 U/L (7-40) Alkaline Phosphatase 57 U/L (46-116) Aspartate Amino Transferase (AST) 20 U/L (13-40) Total Bilirubin 0.7 mg/dL (0.2-1.0) Urinalysis Test 11/07/24 09:30 Urine Color Light-yellow (Yellow) Urine Clarity Clear (Clear) Urine pH 6.5 (5.0-9.0) Urine Specific [place] 1.009 (1.001-1.035) Urine Protein Negative (Negative) Urine Ketones Negative (Negative) Urine Blood Negative /uL (Negative) Urine Nitrite Negative (Negative) Urine Bilirubin Negative (Negative) Urine Urobilinogen Normal mg/dL (Negative) Urine Leukocyte Esterase Negative /uL (Negative) Urine RBC <1 /hpf (0 - 4) Urine Microscopic WBC < 1 /HPF (0-5) Urine Squamous Epithelial Cells Few /hpf (<5) Urine Bacteria None seen /hpf (None Seen) Urine Mucus Few (None Seen) Urine Glucose Normal mg/dL (Normal) Labs and/or images reviewed: Labs reviewed by me, Image(s) reviewed by me Assessment/Plan Assessment/Plan Right-sided weakness rule out TIA/CVA; CT head negative, Neurology consult for Dr. Milligan lipid panel TSH Hypertensive urgency with systolic 190: Amlodipine Hypertensive encephalopathy History of anxiety: Xanax Plan discussed with: Patient My Orders Orders - BRUNO COOK MD Procedure Category Date Status Time * Neurology Consult CONS 11/08/24 Transmitted 12:29 Date of Service: Nov 08, 2024 Billing Provider: BRUNO COOK MD Common Visit Codes: [id number] INP/OBS CARE(HIGH) BRUNO COOK MD Nov 08, 2024 12:38
[2024-11-08 12:59] LABS: Folate (Folic Acid) 7.68 ng/mL (>5.38)
--- NOTE | 2024-11-08 13:51 | DVH ---
Carotid Duplex Date: 11/08/2024 01:23 PM Clinical History: Right-sided weakness Comparison: None Technique: Duplex doppler evaluation of the extracranial carotid and vertebral arteries including col or doppler and spectral/pulsed waveform analysis was performed. Findings: RIGHT SIDE: The peak systolic velocities are 152 cm/s in the distal CCA and 118 cm/s in the proximal ICA.The ICA/ CCA ratio is less than 1. The external carotid artery is patent with peak systolic velocity of 119 cm/s proximally. There is appropriate antegrade flow in the right vertebral artery. LEFT SIDE: The peak systolic velocities are 151 cm/s in the distal CCA and 143 cm/s in the proximal ICA. The IC A/CCA ratio is less than 1. The external carotid artery is patent with peak systolic velocity of 138 cm/s proximally. There is appropriate antegrade flow in the left vertebral artery. Hyperechoic atherosclerotic plaque is seen at the bilateral carotid bulbs IMPRESSION: 1. No hemodynamically significant stenosis noted in the right carotid system. 2. No hemodynamically significant stenosis noted in the left carotid system. 3. Reference: Radiology 2003; 229:[id number]
[2024-11-08 14:16] LABS: LDL Cholesterol 77 mg/dL (< 100); Triglycerides 42 mg/dL (< 150)
[2024-11-08 14:18] LABS: Cholesterol 186 mg/dL (< 200)
[2024-11-08 14:19] LABS: HDL Cholesterol 88 mg/dL (40-59)
[2024-11-09] VITALS (8 sets, daily range): BP systolic 115–157; BP diastolic 53–66; PULSE 59–81; RESP 16–18; TEMP 97.5–98; O2SAT 95–99
--- NOTE | 2024-11-09 11:22 | DVHPN2 ---
Reviewed: Care Plan, H&P, Labs, Medications, Previous Orders, Radiology Changes from previous H/P or p: No Changes Eyes: No Pain, No Vision change, No Conjunctivae inflammation, No Eyelid inflammation, No Other, No Redness ENT: No Ear pain, No Ear discharge, No Nose pain, No Nose discharge, No Nose congestion, No Mouth pain, No Mouth swelling, No Throat pain, No Throat swelling, No Other Cardiovascular: No Chest Pain, No Palpitations, No Orthopnea, No Paroxysmal Noc. Dyspnea, No Edema, No Lt Headedness, No Other Respiratory: No Cough, No Dry, No Shortness of breath, No SOB with excertion, No Wheezing, No Hemoptysis, No Pleuritic Pain, No Sputum, No Other Gastrointestinal: No Nausea, No Vomiting, No Abdominal Pain, No Diarrhea, No Constipation, No Melena, No Hematochezia, No Other Genitourinary: No Dysuria, No Frequency, No Incontinence, No Hematuria, No Retention, No Other Musculoskeletal: No other, No neck pain, No shoulder pain, No arm pain, No back pain, No hand pain, No leg pain, No foot pain Skin: No Rash, No Lesions, No Jaundice, No Bruising, No Other Objective Vitals Vital Signs Date Time Temp Pulse Resp B/P (MAP) Pulse Ox O2 Delivery O2 Flow Rate FiO2 11/09/24 09:49 97.9 63 16 146/66 (92) 99 97.9 11/09/24 08:00 Room Air* 0 21 Intake/Output Intake and Output 11/09/24 07:00 Intake Total 1310 ml Balance 1310 ml Intake Oral 1310 ml # Voids 5 # Bowel Movements 1 Medications Current Medications Medications Dose Ordered Sig/Laury Route Start Time Stop Time Status Last Admin Dose Admin Alprazolam 0.25 mg Q8HP PRN PO 11/07/24 14:45 Hydralazine HCl 10 mg Q6HP PRN IV 11/07/24 14:45 Amlodipine Besylate 5 mg DAILY PO 11/08/24 10:00 11/09/24 08:49 5 MG Sodium Chloride 1,000 ml @ 60 mls/hr [id number] IV 11/07/24 14:45 11/07/24 22:34 60 MLS/HR Acetaminophen/ Hydrocodone Bitart 1 tab Q4HP PRN PO 11/07/24 14:45 Ondansetron HCl 4 mg Q4HP PRN IV 11/07/24 14:45 Docusate Sodium 100 mg BIDPRN PRN PO 11/07/24 14:45 Acetaminophen 650 mg Q6HP PRN PO 11/07/24 14:45 Nitroglycerin 0.4 mg Q5MINP PRN SL 11/07/24 15:15 Morphine Sulfate 2 mg Q30M PRN IV 11/07/24 15:45 Laboratory Results Laboratory Tests 11/08/24 05:53 Urinalysis Test 11/07/24 09:30 Urine Color Light-yellow (Yellow) Urine Clarity Clear (Clear) Urine pH 6.5 (5.0-9.0) Urine Specific [place] 1.009 (1.001-1.035) Urine Protein Negative (Negative) Urine Ketones Negative (Negative) Urine Blood Negative /uL (Negative) Urine Nitrite Negative (Negative) Urine Bilirubin Negative (Negative) Urine Urobilinogen Normal mg/dL (Negative) Urine Leukocyte Esterase Negative /uL (Negative) Urine RBC <1 /hpf (0 - 4) Urine Microscopic WBC < 1 /HPF (0-5) Urine Squamous Epithelial Cells Few /hpf (<5) Urine Bacteria None seen /hpf (None Seen) Urine Mucus Few (None Seen) Urine Glucose Normal mg/dL (Normal) Labs and/or images reviewed: Labs reviewed by me, Image(s) reviewed by me Assessment/Plan Assessment/Plan Right-sided weakness rule out TIA/CVA; CT head negative, Neurology consult for Dr. Milligan lipid panel normal, TSH normal Hypertensive urgency with systolic 190: Amlodipine Hypertensive encephalopathy History of anxiety: Xanax Carotid Ultrasound negative Plan discussed with: Patient My Orders Orders - BRUNO COOK MD Procedure Category Date Status Time * Neurology Consult CONS 11/08/24 Transmitted 12:29 Carotid Duplx W Color US 11/08/24 Resulted DOP 12:32 Date of Service: Nov 09, 2024 Billing Provider: BRUNO COOK MD Common Visit Codes: [id number] INP/OBS CARE(HIGH) BRUNO COOK MD Nov 09, 2024 11:22
--- NOTE | 2024-11-09 15:25 | DVHINCON2 ---
Date of service: Nov 09, [address] Negrete Reason for Consultation Right-sided weakness History of Present Illness Ms. Bassett is a 83 years old right-handed female with a history of hypertension, glaucoma, anxiety, she came to the [facility] on 11/07/2024 with a chief company of right arm weakness. At this time, she is alert and fully oriented, she provided the following history On waking up in the morning on 11/07/2024, she noticed weakness in the right arm when she was trying to pull the cover, but she denies headache, vision changes, slurred speech, weakness in the left arm and bilateral extremities, the patient is able to brush her teeth. She has noticed obvious improvement on 11/08/2024. She denies similar problems previously, she has no history of stroke She was on aspirin but she does not remember taking cholesterol medication at home Urinalysis, 11/07/2024: Unremarkable CBC, 11/07/2024: Unremarkable CMP, 11/08/2024: Unremarkable TG/HDL/LDL/HDL, 11/08/2024: 42/186/77/88 Vitamin B12, 11/08/24: 325 Folic acid, 11/08/24: 7.68 TSH, 11/08/2024: 2.83 Carotid Doppler 11/08/2024: 1. No hemodynamically significant stenosis noted in the right carotid system. 2. No hemodynamically significant stenosis noted in the left carotid system. CT head, 11/07/2024: Mild global brain atrophy and chronic ischemic changes without evidence of acute intracranial process Past Medical History Hypertension, glaucoma, anxiety Past Surgical History , hysterectomy, bladder suspension Family History: Angina G8 MOTHER FH: borderline diabetes mellitus G8 FATHER Heart valve abnormality G8 SISTER Family History Hypertension, diabetes, heart attack, stroke Social History She has a history of light tobacco smoking, no history of drug or use Allergies: Uncoded Allergies: SULFA (Allergy, Unknown, 12/29/13) Home Meds Reported Medications Aspirin (Aspirin Adult Low Dose) 81 Mg Tab, 81 MG PO DAILY, TAB 11/07/24 Losartan Potassium & Hydrochlo (Losartan Potassium/Hydroc) 1 Tab Tab, 1 TAB PO DAILY, #30 TAB 5 Refills 06/02/23 Alprazolam (Alprazolam) 0.25 Mg Tab, 0.25 MG PO Q8HP PRN for ANXIETY, TAB 06/02/23 Review of Systems As above, the other systems are negative Vital Signs Vital Signs Date Time Temp Pulse Resp B/P (MAP) Pulse Ox O2 Delivery O2 Flow Rate FiO2 11/09/24 09:49 97.9 63 16 146/66 (92) 99 97.9 11/09/24 08:00 Room Air* 0 21 Physical Exam GENERAL EXAM: General: the patient is well developed and nourished. No acute distress. HEENT: Normocephalic, neck is supple, no carotid bruits. No mass. RESPIRATORY: Normal respiratory effort with symmetrical lung expansion. Lungs clear to auscultation. CARDIOVASCULAR: Regular rate and rhythm with no murmurs. S1, S2. ABDOMEN: Soft, nontender, normal bowel sound NEUROLOGICAL: MENTAL STATUS: Awake and alert. Oriented to person, place, time and general circumstances. Able to give personal history. SPEECH, LANGUAGE, HIGHER CORTICAL FUNCTION: no aphasia or dysathria. CRANIAL NERVES: #2: Intact visual woodard to confrontation. The optic discs were sharp. #3,4,6: Pupils are equal, round and reactive. EOMs full and conjugate. No nystagmus. #5: Facial sensation intact in all three divisions bilaterally. Mandibular strength intact. #7: Facial muscles symmetrical and strength intact. #8: Hearing grossly normal to voice. #9,10: Uvula and soft palate rise in the midline. Swallow and voice are normal. #11: Trapezius and sternomastoid strength intact bilaterally. #12: Tongue midline. No fasciculations or atrophy. SENSATION: Sensation to touch and pinprick is normal. MOTOR: Normal tone in the upper and lower extremity. Normal muscle bulk. No fasciculations. No abnormal movements or posturing. Muscle strength of the major groups in the upper extremities is 5/5. Muscle strength of the major groups in the lower extremities is 5/5. REFLEXES: Deep tendon reflexes normal and symmetrical. No pathological reflexes. CEREBELLAR/COORDINATION: Finger to nose is normal bilaterally. GAIT/STATION: deferred. Labs/Diagnostic Data Labs Test 11/08/24 05:53 11/07/24 12:47 11/07/24 09:34 11/07/24 09:30 Range/Units White Blood Count 4.9 4.4-10.8 10^3/uL Red Blood Count 3.72 L 4.0-5.20 10^6/uL Hemoglobin 11.6 L 12.2-16.2 g/dL Hematocrit 33.0 #L 36.0-46.0 % Mean Corpuscular Volume 88.7 80.0-100.0 fL Mean Corpuscular Hemoglobin 31.2 28.0-32.0 pg Mean Corpuscular Hemoglobin Concent 35.2 32.0-36.0 g/dL Red Cell Distribution Width 14.2 11.8-14.3 % Platelet Count 233 140-450 10^3/uL Mean Platelet Volume 8.0 6.9-10.8 fL Neutrophils (%) (Auto) 64.0 37.0-80.0 % Lymphocytes (%) (Auto) 19.4 10.0-50.0 % Monocytes (%) (Auto) 12.0 0.0-12.0 % Eosinophils (%) (Auto) 2.9 0.0-7.0 % Basophils (%) (Auto) 1.7 0.0-2.0 % Neutrophils # (Auto) 3.2 1.6-8.6 10 ^3/uL Lymphocytes # (Auto) 1.0 0.4-5.4 10 ^3/uL Monocytes # (Auto) 0.6 0-1.3 10 ^3/uL Eosinophils # (Auto) 0.1 0-0.8 10 ^3/uL Basophils # (Auto) 0.1 0-0.2 10 ^3/uL Nucleated Red Blood Cells 0.1 % Sodium Level 135 L 136-145 mmol/L Potassium Level 3.8 3.5-5.1 mmol/L Chloride Level 104 98-107 mmol/L Carbon Dioxide Level 24 20-31 mmol/L Anion Gap 7 5-15 Blood Urea Nitrogen 11 9-23 mg/dL Creatinine 0.63 0.550-1.02 mg/dL Glomerular Filtration Rate Calc 87 >90 mL/min BUN/Creatinine Ratio 17.5 10.0-20.0 Serum Glucose 83 74-106 mg/dL Calcium Level 9.1 8.7-10.4 mg/dL Total Bilirubin 0.7 0.2-1.0 mg/dL Aspartate Amino Transferase (AST) 20 13-40 U/L Alanine Aminotransferase (ALT) 11 7-40 U/L Alkaline Phosphatase 57 46-116 U/L Total Protein 5.8 5.7-8.2 g/dL Albumin 3.8 3.2-4.8 g/dL Triglycerides Level 42 < 150 mg/dL Cholesterol Level 186 < 200 mg/dL LDL Cholesterol 77 < 100 mg/dL HDL Cholesterol 88 H 40-59 mg/dL Vitamin B12 Level 325 211-911 pg/mL Folic Acid 7.68 >5.38 ng/mL Thyroid Stimulating Hormone (TSH) 2.83 0.55-4.78 uIU/mL Troponin I High Sensitivity 21 </=34 ng/L POC Glucose 96 70-106 mg/dl Urine Color Light-yellow Yellow Urine Clarity Clear Clear Urine pH 6.5 5.0-9.0 Urine Specific [place] 1.009 1.001-1.035 Urine Protein Negative Negative Urine Ketones Negative Negative Urine Blood Negative Negative /uL Urine Nitrite Negative Negative Urine Bilirubin Negative Negative Urine Urobilinogen Normal Negative mg/dL Urine Leukocyte Esterase Negative Negative /uL Urine RBC <1 0 - 4 /hpf Urine Microscopic WBC < 1 0-5 /HPF Urine Squamous Epithelial Cells Few <5 /hpf Urine Bacteria None seen None Seen /hpf Urine Mucus Few None Seen Urine Glucose Normal Normal mg/dL Assessment Acute right upper extremity weakness, rule out acute stroke, recovered Plan/Recommendation Monitoring Supportive treatment Telemetry Follow up Lipitor profile MRI head Echocardiogram More recommendation per clinical course Prognosis: Poor This medical document was created using an electronic medical record system with [employer] dictation system. Although this document has been carefully reviewed, there may still be some phonetic and typographical errors. These areas are purely typographical due to imperfections of the software programs, and do not reflect any compromise in the patient's medical care. Plan discussed with: Patient, Other NAYELI SALDANA MD Nov 09, 2024 15:25
[2024-11-09 16:52] LABS: Triglycerides 51 mg/dL (< 150)
[2024-11-09 16:53] LABS: LDL Cholesterol 72 mg/dL (< 100)
[2024-11-09 16:54] LABS: Cholesterol 185 mg/dL (< 200)
[2024-11-09 17:00] LABS: HDL Cholesterol 88 mg/dL (40-59)
[2024-11-10] VITALS (8 sets, daily range): BP systolic 119–165; BP diastolic 53–62; PULSE 65–79; RESP 15–17; TEMP 97.4–98; O2SAT 96–99
[2024-11-10] MEDS: ASPirin 81 mg TAB PO SCH (10:34)
[2024-11-10] MEDS: hydrALAZINE HCL 20 MG/ML VL IV PRN (10:35)
--- NOTE | 2024-11-10 11:25 | DVHPN2 ---
Reviewed: Care Plan, H&P, Labs, Medications, Previous Orders, Radiology Changes from previous H/P or p: No Changes Eyes: No Pain, No Vision change, No Conjunctivae inflammation, No Eyelid inflammation, No Other, No Redness ENT: No Ear pain, No Ear discharge, No Nose pain, No Nose discharge, No Nose congestion, No Mouth pain, No Mouth swelling, No Throat pain, No Throat swelling, No Other Cardiovascular: No Chest Pain, No Palpitations, No Orthopnea, No Paroxysmal Noc. Dyspnea, No Edema, No Lt Headedness, No Other Respiratory: No Cough, No Dry, No Shortness of breath, No SOB with excertion, No Wheezing, No Hemoptysis, No Pleuritic Pain, No Sputum, No Other Gastrointestinal: No Nausea, No Vomiting, No Abdominal Pain, No Diarrhea, No Constipation, No Melena, No Hematochezia, No Other Genitourinary: No Dysuria, No Frequency, No Incontinence, No Hematuria, No Retention, No Other Musculoskeletal: No other, No neck pain, No shoulder pain, No arm pain, No back pain, No hand pain, No leg pain, No foot pain Skin: No Rash, No Lesions, No Jaundice, No Bruising, No Other Objective Vitals Vital Signs Date Time Temp Pulse Resp B/P (MAP) Pulse Ox O2 Delivery O2 Flow Rate FiO2 11/10/24 10:35 156/58 11/10/24 09:00 97.4 71 16 97 97.4 11/10/24 08:02 Room Air* 0 21 Intake/Output Intake and Output 11/10/24 07:00 Intake Total 840 ml Balance 840 ml Intake Oral 840 ml # Voids 8 # Bowel Movements 1 Medications Current Medications Medications Dose Ordered Sig/Laury Route Start Time Stop Time Status Last Admin Dose Admin Alprazolam 0.25 mg Q8HP PRN PO 11/07/24 14:45 Hydralazine HCl 10 mg Q6HP PRN IV 11/07/24 14:45 11/10/24 10:35 10 MG Amlodipine Besylate 5 mg DAILY PO 11/08/24 10:00 11/10/24 08:16 5 MG Sodium Chloride 1,000 ml @ 60 mls/hr [id number] IV 11/07/24 14:45 11/09/24 15:41 60 MLS/HR Acetaminophen/ Hydrocodone Bitart 1 tab Q4HP PRN PO 11/07/24 14:45 Ondansetron HCl 4 mg Q4HP PRN IV 11/07/24 14:45 Docusate Sodium 100 mg BIDPRN PRN PO 11/07/24 14:45 Acetaminophen 650 mg Q6HP PRN PO 11/07/24 14:45 Nitroglycerin 0.4 mg Q5MINP PRN SL 11/07/24 15:15 Morphine Sulfate 2 mg Q30M PRN IV 11/07/24 15:45 Aspirin 81 mg DAILY PO 11/10/24 10:00 11/10/24 10:34 81 MG Laboratory Results Laboratory Tests 11/08/24 05:53 Lipid panel Test 11/09/24 15:54 Cholesterol Level 185 mg/dL (< 200) HDL Cholesterol 88 mg/dL (40-59) H Triglycerides Level 51 mg/dL (< 150) Urinalysis Test 11/07/24 09:30 Urine Color Light-yellow (Yellow) Urine Clarity Clear (Clear) Urine pH 6.5 (5.0-9.0) Urine Specific [place] 1.009 (1.001-1.035) Urine Protein Negative (Negative) Urine Ketones Negative (Negative) Urine Blood Negative /uL (Negative) Urine Nitrite Negative (Negative) Urine Bilirubin Negative (Negative) Urine Urobilinogen Normal mg/dL (Negative) Urine Leukocyte Esterase Negative /uL (Negative) Urine RBC <1 /hpf (0 - 4) Urine Microscopic WBC < 1 /HPF (0-5) Urine Squamous Epithelial Cells Few /hpf (<5) Urine Bacteria None seen /hpf (None Seen) Urine Mucus Few (None Seen) Urine Glucose Normal mg/dL (Normal) Labs and/or images reviewed: Labs reviewed by me, Image(s) reviewed by me Assessment/Plan Assessment/Plan Right-sided weakness rule out TIA/CVA; CT head negative, carotid ultrasound negative, MRI brain pending, Neurology consult for Dr. Milligan appreciated, lipid panel normal, TSH normal Hypertensive urgency with systolic 190: Amlodipine Hypertensive encephalopathy History of anxiety: Xanax Echocardiogram pending Plan discussed with: Patient Date of Service: Nov 10, 2024 Billing Provider: BRUNO COOK MD Common Visit Codes: [id number] INP/OBS CARE(HIGH) BRUNO COOK MD Nov 10, 2024 11:25
--- NOTE | 2024-11-10 12:38 | DVH ---
MRI BRAIN HEAD WO CONTRAST INDICATION: cva EXAM DATE: 11/10/2024 11:47 AM COMPARISON: None PROCEDURE: Using a 1.5 Perlita scanner, multisequence multiplanar imaging of the brain was obtained. FINDINGS: The brainshows normal morphology and signal characteristics. No abnormal T2 hyperintensity, diffusion restriction, or susceptibility hypointensity is present. The ventricles are normal in size . The midline structures are intact. The major intracranial flow voids are present. The aerated space s are normal. The orbital contents and extracranial soft tissues appear normal. IMPRESSION: Mild cerebral atrophy with nonspecific white matter changes. No acute abnormal MRI findings of the brain.
--- NOTE | 2024-11-10 21:52 | DVHPN2 ---
Progress Note - Dictate Date Seen: Nov 10, 2024 Medical Necessity Reason Pt with a Central, PICC or Fol: No Subjective Ms. Bassett is a 83 years old right-handed female with a history of hypertension, glaucoma, anxiety, she came to the [facility] on 11/07/2024 with a chief complaint of right arm weakness. I have seen and examined the patient, I have discussed with her nurse, she is doing fine, no new complaints, Urinalysis, 11/07/2024: Unremarkable CBC, 11/07/2024: Unremarkable CMP, 11/08/2024: Unremarkable TG/HDL/LDL/HDL, 11/08/2024: 42/186/77/88, 11/09/2024: 51/185/72/at a Vitamin B12, 11/08/24: 325 Folic acid, 11/08/24: 7.68 TSH, 11/08/2024: 2.83 Carotid Doppler 11/08/2024: 1. No hemodynamically significant stenosis noted in the right carotid system. 2. No hemodynamically significant stenosis noted in the left carotid system. CT head, 11/07/2024: Mild global brain atrophy and chronic ischemic changes without evidence of acute intracranial process MR head, 11/10/2024: Mild cerebral atrophy with nonspecific white matter changes. No acute abnormal MRI findings of the brain vital signs Vital Sign Date Time Temp Pulse Resp B/P (MAP) Pulse Ox O2 Delivery O2 Flow Rate FiO2 11/10/24 16:51 97.8 70 16 119/54 (75) 97 97.8 11/10/24 08:02 Room Air* 0 21 Total Intake and Output 11/09/24 11/09/24 11/10/24 15:00 23:00 07:00 Intake Total 300 ml 540 ml Balance 300 ml 540 ml medications Current Medications Medications Dose Ordered Sig/Laury Route Start Time Stop Time Status Last Admin Dose Admin Alprazolam 0.25 mg Q8HP PRN PO 11/07/24 14:45 Hydralazine HCl 10 mg Q6HP PRN IV 11/07/24 14:45 11/10/24 10:35 10 MG Amlodipine Besylate 5 mg DAILY PO 11/08/24 10:00 11/10/24 08:16 5 MG Sodium Chloride 1,000 ml @ 60 mls/hr [id number] IV 11/07/24 14:45 11/09/24 15:41 60 MLS/HR Acetaminophen/ Hydrocodone Bitart 1 tab Q4HP PRN PO 11/07/24 14:45 Ondansetron HCl 4 mg Q4HP PRN IV 11/07/24 14:45 Docusate Sodium 100 mg BIDPRN PRN PO 11/07/24 14:45 Acetaminophen 650 mg Q6HP PRN PO 11/07/24 14:45 Nitroglycerin 0.4 mg Q5MINP PRN SL 11/07/24 15:15 Morphine Sulfate 2 mg Q30M PRN IV 11/07/24 15:45 Aspirin 81 mg DAILY PO 11/10/24 10:00 11/10/24 10:34 81 MG objective General: the patient is well developed and nourished. No acute distress. ABDOMEN: Soft, nontender, normal bowel sound MENTAL STATUS: Awake and alert. Oriented to person, place, time and general circumstances. Able to give personal history. SPEECH, LANGUAGE, HIGHER CORTICAL FUNCTION: no aphasia or dysathria. CRANIAL NERVES: Pupils are equal, round and reactive. EOMs full and conjugate. No nystagmus. Facial sensation intact in all three divisions bilaterally. Mandibular strength intact. Facial muscles symmetrical and strength intact. SENSATION: Sensation to touch and pinprick is normal. MOTOR: Normal tone in the upper and lower extremity. Normal muscle bulk. No fasciculations. No abnormal movements or posturing. Muscle strength of the major groups in the extremities is 5/5. REFLEXES: Deep tendon reflexes normal and symmetrical. No pathological reflexes. CEREBELLAR/COORDINATION: Finger to nose is normal bilaterally. GAIT/STATION: deferred laboratory and microbiology Laboratory Tests 11/08/24 05:53 Test 11/08/24 05:53 Range/Units Serum Glucose 83 74-106 mg/dL Problem List Acute right upper extremity weakness, with negative MRI, TIA, a negative MRI can not eliminate a possibility of TIA Rule out seizure, less likely Assessment/Plan Monitoring Supportive treatment Telemetry Follow up Lipitor profile EEG Echocardiogram More recommendation per clinical course This medical document was created using an electronic medical record system with [employer] system. Although this document has been carefully reviewed, there may still be some phonetic and typographical errors. These areas are purely typographical due to imperfections of the software programs, and do not reflect any compromise in the patient's medical care. Prognosis poor Plan discussed with: Patient, Other NAYELI SALDANA MD Nov 10, 2024 21:52
[2024-11-11] VITALS (9 sets, daily range): BP systolic 134–159; BP diastolic 53–78; PULSE 64–92; RESP 14–19; TEMP 97–98.8; O2SAT 96–100
--- NOTE | 2024-11-11 11:04 | DVHPN2 ---
Reviewed: Care Plan, H&P, Labs, Medications, Previous Orders, Radiology Changes from previous H/P or p: No Changes Eyes: No Pain, No Vision change, No Conjunctivae inflammation, No Eyelid inflammation, No Other, No Redness ENT: No Ear pain, No Ear discharge, No Nose pain, No Nose discharge, No Nose congestion, No Mouth pain, No Mouth swelling, No Throat pain, No Throat swelling, No Other Cardiovascular: No Chest Pain, No Palpitations, No Orthopnea, No Paroxysmal Noc. Dyspnea, No Edema, No Lt Headedness, No Other Respiratory: No Cough, No Dry, No Shortness of breath, No SOB with excertion, No Wheezing, No Hemoptysis, No Pleuritic Pain, No Sputum, No Other Gastrointestinal: No Nausea, No Vomiting, No Abdominal Pain, No Diarrhea, No Constipation, No Melena, No Hematochezia, No Other Genitourinary: No Dysuria, No Frequency, No Incontinence, No Hematuria, No Retention, No Other Musculoskeletal: No other, No neck pain, No shoulder pain, No arm pain, No back pain, No hand pain, No leg pain, No foot pain Skin: No Rash, No Lesions, No Jaundice, No Bruising, No Other Objective Vitals Vital Signs Date Time Temp Pulse Resp B/P (MAP) Pulse Ox O2 Delivery O2 Flow Rate FiO2 11/11/24 09:59 74 18 134/66 (88) 11/11/24 08:56 97.0 97 97.0 11/11/24 08:05 Room Air* 0 21 Intake/Output Intake and Output 11/11/24 07:00 Intake Total 1390 ml Balance 1390 ml Intake Oral 1240 ml IV Total 150 ml # Voids 7 # Bowel Movements 1 Medications Current Medications Medications Dose Ordered Sig/Laury Route Start Time Stop Time Status Last Admin Dose Admin Alprazolam 0.25 mg Q8HP PRN PO 11/07/24 14:45 Hydralazine HCl 10 mg Q6HP PRN IV 11/07/24 14:45 11/10/24 10:35 10 MG Amlodipine Besylate 5 mg DAILY PO 11/08/24 10:00 11/11/24 07:58 5 MG Sodium Chloride 1,000 ml @ 60 mls/hr [id number] IV 11/07/24 14:45 11/09/24 15:41 60 MLS/HR Acetaminophen/ Hydrocodone Bitart 1 tab Q4HP PRN PO 11/07/24 14:45 Ondansetron HCl 4 mg Q4HP PRN IV 11/07/24 14:45 Docusate Sodium 100 mg BIDPRN PRN PO 11/07/24 14:45 Acetaminophen 650 mg Q6HP PRN PO 11/07/24 14:45 Nitroglycerin 0.4 mg Q5MINP PRN SL 11/07/24 15:15 Morphine Sulfate 2 mg Q30M PRN IV 11/07/24 15:45 Aspirin 81 mg DAILY PO 11/10/24 10:00 11/11/24 07:58 81 MG Laboratory Results Laboratory Tests 11/08/24 05:53 Urinalysis Test 11/07/24 09:30 Urine Color Light-yellow (Yellow) Urine Clarity Clear (Clear) Urine pH 6.5 (5.0-9.0) Urine Specific [place] 1.009 (1.001-1.035) Urine Protein Negative (Negative) Urine Ketones Negative (Negative) Urine Blood Negative /uL (Negative) Urine Nitrite Negative (Negative) Urine Bilirubin Negative (Negative) Urine Urobilinogen Normal mg/dL (Negative) Urine Leukocyte Esterase Negative /uL (Negative) Urine RBC <1 /hpf (0 - 4) Urine Microscopic WBC < 1 /HPF (0-5) Urine Squamous Epithelial Cells Few /hpf (<5) Urine Bacteria None seen /hpf (None Seen) Urine Mucus Few (None Seen) Urine Glucose Normal mg/dL (Normal) Labs and/or images reviewed: Labs reviewed by me, Image(s) reviewed by me Assessment/Plan Assessment/Plan Acute right upper extremity weakness rule out TIA/CVA; CT head negative, MRI brain negative carotid ultrasound negative, Neurology consult for Dr. Milligan appreciated, lipid panel normal, TSH normal, EEG pending, echocardiogram result pending Hypertensive urgency with systolic 190: Amlodipine Hypertensive encephalopathy History of anxiety: Xanax Plan discussed with: Patient Date of Service: Nov 11, 2024 Billing Provider: BRUNO COOK MD Common Visit Codes: [id number] INP/OBS CARE(HIGH) BRUNO COOK MD Nov 11, 2024 11:04
--- NOTE | 2024-11-11 15:17 | DVHSR ---
APPROVED REPORT EXAM: Two-dimensional and M-mode echocardiogram with Doppler and color Doppler. Blood Pressure: 136/56 mmHg INDICATION CVA/TIA: RISK FACTORS Height: 5'1, Weight: 106 DIMENSIONS LVDd3.3 (3.8-5.7cm)LA (2D)4.5 (1.9-4.0cm)Aortic Root3.0 (2.0-3.7cm) LVDs2.2 (2.5-4.0cm)LA (MM) (1.9-4.0cm)Aortic Cusp Exc1.4 (1.5-2.0cm) EF (%) 60.0 (55-70%)Rt. Atrium3.9 (1.9-4.0cm)Asc. Aorta3.6 cm IVSd0.7 (0.7-1.1cm)RV (D)2.8 (1.8-2.4cm) PWd0.7 (0.7-1.1cm) Mitral Valve MitralMitral Stenosis E wave1.10m/sMV Mean GR.mmHg A wave1.16m/sMV Peak GR.124mmHg E/A ratio0.92D MVAcm2 DECEL [id number] 1/2 Timems Aortic Valve Aortic ValveAortic Stenosis V11.51m/Dianne Mean GR.10mmHg V22.24m/Dianne Peak GR.20mmHg LVOT Diameter1.6 (1.8-2.4cm)Doppler AVA1.35cm2 AI P 1/2 Wnkl211.75ms Pulmonic Valve V20.81m/s Tricuspid Valve TR Velocity2.71m/s [id number] Conclusion Sinus Rythm Left atrial enlargement, Aortic root enlargement. Sigmoid septum Mild Ao Sclerosis. Normal LV function. EF or 65% with normal RV function. Mild MR, TR mild, Moderate AI. Mild with 20 mmHg peak gradien. No masses or vegetations.
[2024-11-12] VITALS (8 sets, daily range): BP systolic 109–133; BP diastolic 59–75; PULSE 66–84; RESP 16–19; TEMP 96.7–97.8; O2SAT 94–97
--- NOTE | 2024-11-12 13:03 | ECG ---
[facility] Test Date: 2024-11-07 Test Time: 09:32:55 Pat Name: MY JOLLEY [facility] Gender[facility] F Program Manager: ZAMZAM : [id number] Requested By: JAYNE MCCARTY Order Number: [id number] Reading MD: Shaun Vega Measurements Intervals [place] Rate: 75 P: 19 CO: 155 QRS: 50 QRSD: 113 T: 39 QT: 391 QTc: 437 Interpretive Statements Sinus rhythm Borderline intraventricular conduction delay Low voltage, precordial leads Minimal ST depression, lateral leads Electronically Signed On 11-13-2024 17:24:46 PDT by Shaun Vega Please click the below link to view image of tracing.
--- NOTE | 2024-11-12 13:05 | DVHPN2 ---
Reviewed: Care Plan, H&P, Labs, Medications, Previous Orders, Radiology Changes from previous H/P or p: No Changes Eyes: No Pain, No Vision change, No Conjunctivae inflammation, No Eyelid inflammation, No Other, No Redness ENT: No Ear pain, No Ear discharge, No Nose pain, No Nose discharge, No Nose congestion, No Mouth pain, No Mouth swelling, No Throat pain, No Throat swelling, No Other Cardiovascular: No Chest Pain, No Palpitations, No Orthopnea, No Paroxysmal Noc. Dyspnea, No Edema, No Lt Headedness, No Other Respiratory: No Cough, No Dry, No Shortness of breath, No SOB with excertion, No Wheezing, No Hemoptysis, No Pleuritic Pain, No Sputum, No Other Gastrointestinal: No Nausea, No Vomiting, No Abdominal Pain, No Diarrhea, No Constipation, No Melena, No Hematochezia, No Other Genitourinary: No Dysuria, No Frequency, No Incontinence, No Hematuria, No Retention, No Other Musculoskeletal: No other, No neck pain, No shoulder pain, No arm pain, No back pain, No hand pain, No leg pain, No foot pain Skin: No Rash, No Lesions, No Jaundice, No Bruising, No Other Objective Vitals Vital Signs Date Time Temp Pulse Resp B/P (MAP) Pulse Ox O2 Delivery O2 Flow Rate FiO2 11/12/24 09:06 97.7 68 18 130/62 (84) 97 97.7 11/12/24 08:00 Room Air* 0 21 Intake/Output Intake and Output 11/12/24 07:00 Intake Total 1120 ml Output Total 1800 ml Balance -680 ml Intake Oral 1120 ml Output Urine Total 1800 ml # Bowel Movements 3 Medications Current Medications Medications Dose Ordered Sig/Laury Route Start Time Stop Time Status Last Admin Dose Admin Alprazolam 0.25 mg Q8HP PRN PO 11/07/24 14:45 Hydralazine HCl 10 mg Q6HP PRN IV 11/07/24 14:45 11/10/24 10:35 10 MG Amlodipine Besylate 5 mg DAILY PO 11/08/24 10:00 11/12/24 08:45 5 MG Sodium Chloride 1,000 ml @ 60 mls/hr [id number] IV 11/07/24 14:45 11/09/24 15:41 60 MLS/HR Acetaminophen/ Hydrocodone Bitart 1 tab Q4HP PRN PO 11/07/24 14:45 Ondansetron HCl 4 mg Q4HP PRN IV 11/07/24 14:45 Docusate Sodium 100 mg BIDPRN PRN PO 11/07/24 14:45 Acetaminophen 650 mg Q6HP PRN PO 11/07/24 14:45 Nitroglycerin 0.4 mg Q5MINP PRN SL 11/07/24 15:15 Morphine Sulfate 2 mg Q30M PRN IV 11/07/24 15:45 Aspirin 81 mg DAILY PO 11/10/24 10:00 11/12/24 08:44 81 MG Laboratory Results Laboratory Tests 11/08/24 05:53 Urinalysis Test 11/07/24 09:30 Urine Color Light-yellow (Yellow) Urine Clarity Clear (Clear) Urine pH 6.5 (5.0-9.0) Urine Specific [place] 1.009 (1.001-1.035) Urine Protein Negative (Negative) Urine Ketones Negative (Negative) Urine Blood Negative /uL (Negative) Urine Nitrite Negative (Negative) Urine Bilirubin Negative (Negative) Urine Urobilinogen Normal mg/dL (Negative) Urine Leukocyte Esterase Negative /uL (Negative) Urine RBC <1 /hpf (0 - 4) Urine Microscopic WBC < 1 /HPF (0-5) Urine Squamous Epithelial Cells Few /hpf (<5) Urine Bacteria None seen /hpf (None Seen) Urine Mucus Few (None Seen) Urine Glucose Normal mg/dL (Normal) Labs and/or images reviewed: Labs reviewed by me, Image(s) reviewed by me Assessment/Plan Assessment/Plan Acute right upper extremity weakness rule out TIA/CVA; CT head negative, MRI brain negative carotid ultrasound negative, Neurology consult for Dr. Milligan appreciated, lipid panel normal, TSH normal, EEG pending, echocardiogram 65 %ejection fraction Hypertensive urgency with systolic 190: Amlodipine Hypertensive encephalopathy Will DC after the EEG report Plan discussed with: Patient Date of Service: Nov 12, 2024 Billing Provider: BRUNO COOK MD Common Visit Codes: [id number] INP/OBS CARE(HIGH) BRUNO COOK MD Nov 12, 2024 13:05
[2024-11-13 01:05] VITALS: BP 110/46; PULSE 63; RESP 19; TEMP 97.1; O2SAT 97
[2024-11-13 05:05] VITALS: BP 124/65; PULSE 68; RESP 19; TEMP 97; O2SAT 98
[2024-11-13 07:58] VITALS: PULSE 71; RESP 19; O2SAT 95
[2024-11-13 08:00] VITALS: PULSE 65
[2024-11-13 08:18] VITALS: BP 149/46; PULSE 71; RESP 19; TEMP 98; O2SAT 95
[2024-11-13] MEDS ORDERED: ATOR20TA PO (11:14)
--- NOTE | 2024-11-13 11:21 | DVHDS2 ---
Discharge Summary Date of Admission Nov 07, 2024 at 15:15 Date of Discharge: Nov 13, 2024 Admitting Diagnosis Right upper extremity weakness Wounds: None Labs/Diagnostic Data: Laboratory Results Test 11/09/24 15:54 11/08/24 05:53 11/07/24 12:47 11/07/24 09:34 Triglycerides Level 51 mg/dL (< 150) Cholesterol Level 185 mg/dL (< 200) LDL Cholesterol 72 mg/dL (< 100) HDL Cholesterol 88 mg/dL (40-59) White Blood Count 4.9 10^3/uL (4.4-10.8) Red Blood Count 3.72 10^6/uL (4.0-5.20) Hemoglobin 11.6 g/dL (12.2-16.2) Hematocrit 33.0 % (36.0-46.0) Mean Corpuscular Volume 88.7 fL (80.0-100.0) Mean Corpuscular Hemoglobin 31.2 pg (28.0-32.0) Mean Corpuscular Hemoglobin Concent 35.2 g/dL (32.0-36.0) Red Cell Distribution Width 14.2 % (11.8-14.3) Platelet Count 233 10^3/uL (140-450) Mean Platelet Volume 8.0 fL (6.9-10.8) Neutrophils (%) (Auto) 64.0 % (37.0-80.0) Lymphocytes (%) (Auto) 19.4 % (10.0-50.0) Monocytes (%) (Auto) 12.0 % (0.0-12.0) Eosinophils (%) (Auto) 2.9 % (0.0-7.0) Basophils (%) (Auto) 1.7 % (0.0-2.0) Neutrophils # (Auto) 3.2 10 ^3/uL (1.6-8.6) Lymphocytes # (Auto) 1.0 10 ^3/uL (0.4-5.4) Monocytes # (Auto) 0.6 10 ^3/uL (0-1.3) Eosinophils # (Auto) 0.1 10 ^3/uL (0-0.8) Basophils # (Auto) 0.1 10 ^3/uL (0-0.2) Nucleated Red Blood Cells 0.1 % Sodium Level 135 mmol/L (136-145) Potassium Level 3.8 mmol/L (3.5-5.1) Chloride Level 104 mmol/L (98-107) Carbon Dioxide Level 24 mmol/L (20-31) Anion Gap 7 (5-15) Blood Urea Nitrogen 11 mg/dL (9-23) Creatinine 0.63 mg/dL (0.550-1.02) Glomerular Filtration Rate Calc 87 mL/min (>90) BUN/Creatinine Ratio 17.5 (10.0-20.0) Serum Glucose 83 mg/dL (74-106) Calcium Level 9.1 mg/dL (8.7-10.4) Total Bilirubin 0.7 mg/dL (0.2-1.0) Aspartate Amino Transferase (AST) 20 U/L (13-40) Alanine Aminotransferase (ALT) 11 U/L (7-40) Alkaline Phosphatase 57 U/L (46-116) Total Protein 5.8 g/dL (5.7-8.2) Albumin 3.8 g/dL (3.2-4.8) Vitamin B12 Level 325 pg/mL (211-911) Folic Acid 7.68 ng/mL (>5.38) Thyroid Stimulating Hormone (TSH) 2.83 uIU/mL (0.55-4.78) Troponin I High Sensitivity 21 ng/L (</=34) POC Glucose 96 mg/dl (70-106) Test 11/07/24 09:30 Urine Color Light-yellow (Yellow) Urine Clarity Clear (Clear) Urine pH 6.5 (5.0-9.0) Urine Specific [place] 1.009 (1.001-1.035) Urine Protein Negative (Negative) Urine Ketones Negative (Negative) Urine Blood Negative /uL (Negative) Urine Nitrite Negative (Negative) Urine Bilirubin Negative (Negative) Urine Urobilinogen Normal mg/dL (Negative) Urine Leukocyte Esterase Negative /uL (Negative) Urine RBC <1 /hpf (0 - 4) Urine Microscopic WBC < 1 /HPF (0-5) Urine Squamous Epithelial Cells Few /hpf (<5) Urine Bacteria None seen /hpf (None Seen) Urine Mucus Few (None Seen) Urine Glucose Normal mg/dL (Normal) Other Laboratory Tests 11/08/24 05:53 Brief Hx & Hospital Course: 83-year-old female with a history of hypertension came in complaining of acute right upper extremity weakness admitted for evaluation CT head negative MRI brain negative carotid ultrasound negative neurology consult by Dr. Milligan lipid panel normal TSH normal EEG pending echocardiogram 65 percent ejection fraction blood pressure at the time of admission 190 patient has significantly improved and has a no weakness in the right upper extremity at the time of discharge. The patient probably had TIA. She takes lisinopril aspirin and hydrochlorothiazide at home. Discharged home. Lipid panel normal but prescription given for Lipitor 20 mg p.o. daily. She will follow up with Dr. iMlligan for the pending EEG report Consults/Reason for consult Neurology Dr. Milligan Operations or Procedures CT head MRI brain Carotid ultrasound EEG Condition at Discharge: Fair Final Diagnosis/Problems List Acute right upper extremity weakness rule out TIA/CVA; CT head negative, MRI brain negative carotid ultrasound negative, Neurology consult for Dr. Milligan appreciated, lipid panel normal, TSH normal, EEG pending, echocardiogram 65 %ejection fraction Hypertensive urgency with systolic 190: Amlodipine Hypertensive encephalopathy Discharge Disposition: Home Discharge Instruct/Medications Diet: Cardiac 2g Na,low cholest Activity: Light activity Follow Up/Referral: Follow up with neurology Dr. Milligan in one week for the EEG report Continue aspirin lisinopril and hydrochlorothiazide Medications: Lipitor 35 (Time taken for discharge summary 35 minutes) Discharge Statement: "Patient was advised to return to the ER or call 911 if any headaches, dizziness, shortness of breath, chest pain, abdominal pain, bleeding, fevers, or worsening of medical condition. Patient was counseled about treatment plan, medications, possible side effects, patientverbalized understanding. All questions were answered to the best of my ability. This discharge took greater then 30 minutes in planning, reviewing documentation, counseling the patient, and discussing with other team members." ASSESSMENT ASSESSMENT Hospital Course Symptoms resolved Assessment Acute right upper extremity weakness rule out TIA/CVA; CT head negative, MRI brain negative carotid ultrasound negative, Neurology consult for Dr. Milligan appreciated, lipid panel normal, TSH normal, EEG pending, echocardiogram 65 %ejection fraction Hypertensive urgency with systolic 190: Amlodipine Hypertensive encephalopathy Date of Service: Nov 13, 2024 Billing Provider: BRUNO COOK MD Common Visit Codes: [id number] DISCH DAY >30min BRUNO COOK MD Nov 13, 2024 11:21
[2024-11-13 11:24] VITALS: BP 149/46; PULSE 71; RESP 19; TEMP 98; O2SAT 95
--- NOTE | 2024-11-15 21:48 | DVHEEG2 ---
Neurology EEG Procedural Note Procedural Note EXAM DATE: 11/11/2024 REFERRING DOCTOR: Dr. Saldana TECHNIQUE: Eighteen channels of EEG, 2 channels of EOG, and 1 channel of EKG were recorded using the [employer] 10/20 system. CLINICAL DATA: The patient was referred for an EEG evaluation for the evidence of seizure disorder. MEDICATIONS: See the chart BACKGROUND ACTIVITY: While the patient was awake, the background activity consisted of well regulated 10-11 Hz rhythmic waveforms, symmetrically distributed over both posterior quadrants and was reactive to eye opening. ACTIVATION: Hyperventilation: Not done Photic Stimulation: No photic convulsive response Sleep: Not seen IMPRESSION: This is a normal EEG. No focal, lateralized, or epileptiform features are noted. If clinically indicated to rule out a seizure disorder, recommend repeat EEG with sleep deprivation. The EKG channel showed a regular heart rate of 84/minute [place] [address] NAYELI SALDANA MD Nov 15, 2024 21:48
== END 2024-11-13 12:22 | disposition home or self-care (01) | DRG 69 ==
LOC: ER 09:12 → OVERFLOW 15:15 → TELE-WESTW 21:18
PROVIDERS: ADMIT Family Medicine; ATTEND Family Medicine
DX: G45.9 Transient cerebral ischemic attack, unspecified (principal); I67.4 Hypertensive encephalopathy; I16.0 Hypertensive urgency; I10 Essential (primary) hypertension; F41.9 Anxiety disorder, unspecified; Z90.710 Acquired absence of both cervix and uterus; Z88.2 Allergy status to sulfonamides; Z83.3 Family history of diabetes mellitus; Z82.49 Family history of ischemic heart disease and other diseases of the circulatory system; Z82.3 Family history of stroke; Z79.899 Other long term (current) drug therapy
CPT/HCPCS: 36415; 70450; 70551; 71045; 80048; 80053; 80061; 81001; 82607; 82746; 82962; 84443; 84484; 85025; 93005; 93306; 93886; 95819; 96360; 99291; G0378